=== PATIENT | female | born 1945 | race Caucasian/White ===

== ENCOUNTER 2018-01-30 08:33 | Inpatient (IN) ==
--- NOTE | 2018-01-30 08:46 | History & Physical Report ---
Date of Encounter: 01/30/18 Time of Encounter: 08:46 24 Hour HP Update - Instructions Instructions: If the History and Physical is less than 30 days old and was completed prior to A.M. admission and or procedure and has NOT been updated on calendar day of procedure please complete this update prior to performing procedure. - Update Patient reports changes in Medical Condition: No Changes in examination, assessment, or condition: No Changes in Medication: No Preop tests/diagnostics Reviewed: Yes Surgery Remains Indicated: Yes Consent for Planned Operative Procedure(s) Verified: Yes - Pre-Operative Checklist Preoperative Checklist Indicated: No Prophylactic Antibiotic Ordered: Yes Is VTE Prophylaxis Indicated?: Yes
--- NOTE | 2018-01-30 09:01 | Discharge Summary ---
Date of Encounter: 02/02/18 Time of Encounter: 12:30 - Discharge Diagnosis (1) Arthritis of both knees Priority: Primary Status: Chronic (2) Status post total bilateral knee replacement Priority: Primary Status: Acute (3) History of gastric bypass Priority: Secondary Status: Chronic (4) GERD (gastroesophageal reflux disease) Priority: Secondary Status: Chronic Qualifiers: Esophagitis presence: esophagitis presence not specified Qualified Code(s): K21.9 - Gastro-esophageal reflux disease without esophagitis (5) Anxiety Priority: Secondary Status: Chronic (6) Depression Priority: Secondary Status: Chronic Qualifiers: Depression Type: unspecified Qualified Code(s): F32.9 - Major depressive disorder, single episode, unspecified (7) Hypertension Priority: Secondary Status: Chronic Qualifiers: Hypertension type: unspecified Qualified Code(s): I10 - Essential (primary) hypertension (8) Postoperative anemia Priority: Secondary Status: Resolved Comments: Patient received 1 unit PRBCs following type and cross on 02/01/18 with satisfactory rise in hemoglobin and hematocrit. - Hospital Course Hospital course: Ms. Sarmiento is a 72 year old female POD#3 Date of procedure: 01/30/18 Pre-op diagnosis: Bilateral knee arthritis Post-op diagnosis: same Procedure: Bilateral robotic-assisted Total knee replacement PCR - Patient seen at bedside, sitting in chair. Patient's daughter and son at bedside. A&Ox3 Dressings and incision c/d/i Zipline and brandyn intact No calf tenderness, erythema, or warmth. Neurovascularly intact b/l LE. Labwork and medications reviewed. Pain control: Adequate - struggling with lightheadedness with PT participation and activity. Need to monitor opioid use and hypotension. Patient drinking water. 1/2 liter bolus given 01/31/18 with improvement in lightheadedness. Patient found to have low H/H 02/01/18 with symptoms of fatigue and return of lightheadedness. Patient received type/screen and given 1 unit of PRBCs 02/01/18 with improvement in H/H and symptoms. Participating in PT. All questions and concerns addressed. Educated on use of incentive spirometer, ambulation, and hydration. Patient educated on post-operative restrictions and care. D/c today to rehab. - Time Spent with Patient Total time spent providing and/or coordinating discharge services: - Discharge Medications Home Medications: Aspirin Enteric Coated [Aspirin EC] 325 mg PO BID 10 Days #20 tablet. 01/30/18 [Rx] Docusate Sodium [Colace] 100 mg PO BID 5 Days #10 capsule 01/30/18 [Rx] OxyCODONE Immed Rel [Roxicodone 5 MG] 5 mg PO Q6HR PRN 7 Days #28 tablet 01/30/18 [Rx] Ca/D3/Mag#11/Zinc/Blade Aligner/Ollie/Bor [Caltrate 600+D Plus Tablet] 1 each PO DAILY 01/31/18 [History] Citalopram Hydrobromide [Celexa] 40 mg PO DAILY 01/31/18 [History] DiphenhydraMINE [Benadryl] 1 appl TP TID PRN tube 01/31/18 [Rx] DiphenhydraMINE [Benadryl] 25 mg PO Q6HR PRN capsule 01/31/18 [Rx] Multivitamin [One Daily Essential] 1 each PO DAILY 01/31/18 [History] Pantoprazole Sodium [Protonix] 40 mg PO DAILY 01/31/18 [History] Temazepam [Restoril] 15 mg PO HS PRN capsule 01/31/18 [Rx] Allergies/Adverse Reactions: Allergy/AdvReac Type Severity Reaction Status Date / Time morphine AdvReac See Verified 01/31/18 17:31 Comments Sulfa (Sulfonamide AdvReac See Verified 01/31/18 17:31 Antibiotics) Comments Date of admission: 01/30/18 Primary care physician: Delia Do Discharging clinician: Braydon Waddell - VTE Documentation of Mechanical Device: Venous foot pump, device - Patient Status Disposition: Transfer Inpatient Rehab Fac Condition: Fair Functional capacity at discharge: uses cane/walker Overall status at discharge: patient is progressing back to baseline - Discharge Instructions Follow Up With: Delia Do MD [Primary Care Provider] - - Diet and Activity Activity: as per physical therapy Diet: advance to your usual diet
[2018-01-30] MEDS ORDERED: CeFAZolin Syr 2,000MG/20 ML 2,000 MG/20 ML SYRINGE IVPB ONE (09:07)
[2018-01-30] MEDS ORDERED: *HR* Propofol 200 MG/20 ML VIAL IVP ONE (09:12)
[2018-01-30] MEDS ORDERED: Ondansetron 4 MG/2 ML VIAL ONE (09:13)
[2018-01-30] MEDS ORDERED: Lidocaine -MPF 2% 2 ML VIAL ONE (09:13)
[2018-01-30] MEDS ORDERED: *HR* Midazolam HCl 2 MG/2 ML VIAL ONE ×2 (09:13→12:37)
[2018-01-30] MEDS ORDERED: *HR* FentaNYL (PF) 100 MCG/2 ML VIAL ONE (09:13)
[2018-01-30] MEDS ORDERED: Dexamethasone 4 MG/ML VIAL ONE (09:13)
--- NOTE | 2018-01-30 09:36 | Anesthesia Evaluation PreOp ---
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 01/30/18 [Rx] Docusate Sodium [Colace] 100 mg PO BID 5 Days #10 capsule 01/30/18 [Rx] OxyCODONE Immed Rel [Roxicodone 5 MG] 5 mg PO Q6HR PRN 7 Days #28 tablet 01/30/18 [Rx] Allergy/AdvReac Type Severity Reaction Status Date / Time morphine AdvReac See Verified 01/30/18 09:19 Comments Sulfa (Sulfonamide AdvReac See Verified 01/30/18 09:19 Antibiotics) Comments - Meds/Allergy Pre-op Review Medications Reviewed: Yes Allergies Reviewed: Yes Beta Blockers on Current Med List: No Anesthesia Results - Labs Laboratory Tests 01/23/18 01/23/18 13:50 13:50 Hgb 11.2 L Hct 35.1 L Plt Count 275 Sodium 140 Potassium 3.8 BUN 26 H Creatinine 0.66 - Imaging EKG: report reviewed (SR) Anesthesia Exam O2 Sat Height 1.65 m Height 1.65 m Height 1.65 m Weight 76.657 kg Weight 76.657 kg Weight 76.657 kg O2 Sat by Pulse Oximetry 100 Vital Signs Temp Pulse Resp BP Pulse Ox 98.3 F 63 18 150/86 100 01/30/18 08:54 01/30/18 08:54 01/30/18 08:54 01/30/18 08:54 01/30/18 08:54 Height: 5'5 Weight: 169 lbs NPO (# of Hours): MN Pain Scale: 0 - HEENT Pupil (Motor): Pupils equal, EOMI Mallampati: II Teeth: Prosthesis Denture Type: Upper: Complete Oral Opening: Greater than 3 - TEST RACK OPERATOR LOC: Oriented TEST RACK OPERATOR Motor: Normal RUE, Normal LUE, Normal RLE, Normal LLE, Normal Face TEST RACK OPERATOR Sensory: Normal: RUE, LUE, RLE, LLE, Face - Cardiac Rhythm: Regular Murmur: None JVD: No Carotid Bruit: No - Pulmonary Breath Sounds: bilateral Clear Respiratory Effort: Symmetrical Anesthesia Assess/Plan ASA Score: 2 Level of consciousness: Cooperative, Oriented Anesthetic Plan: Regional Nerve Block, MAC, Spinal Regional Nerve Block Plan: Adductor canal Autologous Blood: No Monitoring Plan: Standard Monitors Recovery Plan: PACU (Discussed SAB, Adductor Canal Block, possible GA, agrees to proceed)
[2018-01-30] MEDS ORDERED: Tranexamic Acid 1,000 MG/10 ML VIAL ONE ×2 (09:52→11:04)
[2018-01-30] MEDS: Ringers Solution, Lactated 1,000 ML IVC SCH ×3 (10:00→13:35)
[2018-01-30] MEDS ORDERED: ROPIVACAINE HCL/PF 0.5% 30 ML VIAL ONE (10:02)
[2018-01-30] MEDS ORDERED: Bupivacaine-MPF 0.25% 10 ML VIAL ONE (10:02)
[2018-01-30] MEDS ORDERED: *HR* EPINEPHrine 1 MG/ML AMPUL ONE (10:03)
[2018-01-30] MEDS ORDERED: Lidocaine -MPF 1% 5 ML AMPUL ONE (10:20)
[2018-01-30] MEDS ORDERED: Ethanol\\Acetic Acid\\Na Ace\\Ben 1,000 ML IRRIG.SOLN IR ONE (10:34)
[2018-01-30] MEDS ORDERED: Propofol 500 MG/50 ML INFUS..BTL ONE (10:45)
[2018-01-30] MEDS ORDERED: Acetaminophen IV 1,000 MG/100 ML INFUS..BTL ONE (11:29)
--- NOTE | 2018-01-30 11:46 | Anesthesia Procedures ---
Date of Encounter: 01/30/18 Time of Encounter: 10:25 Procedures: Anesthesia - Epidural/Spinal Patient ID/Chart reviewed: Yes Patient examined: Yes Supplemental Oxygen Rate (L/min): 2 Sedation: Versed (mg): 2 Sedation: Fentanyl (mcg): 100 Site Prep: Aseptic Technique, Sterile prep and drape, Povidone-Iodine 1%, Other (and alcohol) Local Anesthetic: Lidocaine 1% Amount of Local Anesthetic used: 2.5 Interspace Used: L4-L5 Blood: No CSF: Yes Spinal Needle Gauge: 24 Spinal Dose: 2ml 0.5% bupivicaine and o.25 mg duramorph Procedure: spinal for bilateral total knees - Nerve Block Procedure Date: 01/30/18 Time: 10:31 Allergies/Adv Reactions: Allergy/AdvReac Type Severity Reaction Status Date / Time morphine AdvReac See Verified 01/30/18 09:19 Comments Sulfa (Sulfonamide AdvReac See Verified 01/30/18 09:19 Antibiotics) Comments Pre-op Diagnosis: bilateral knee arthritis Surgical Procedure: bilateral knee arthroplasty Checklist: Correct Patient Identifier, Correct procedure, History checked Correct side: Right Blood Thinner: No Monitor Applied: EKG, BP, Pulse Oximetry Supplemental Oxygen via Nasal Cannula (L/min): 2 Indication: Post Op Analgesia (addcutor canal blocks) Catheter placed: No Sterile Technique: Yes Ultrasound used: Yes Anatomy identified: Yes Visual spread of Local: Yes Blood on Needle Aspiration: No Smooth Injection of Local: Yes Pain with Injection of Local: No Prep: Chlorhexadine Needle: 22 x 50 mm Stimuplex Local: Ropivacaine (and decadron) Volume (cc): 30 Number of Attempts: 1 Complications: None/effective block
[2018-01-30] MEDS ORDERED: Ondansetron 4 MG/2 ML VIAL IVP PRN ×2 (12:42→14:36)
[2018-01-30] MEDS ORDERED: *HR* OxyCODONE Immed Rel 5 MG TABLET PO PRN (12:46)
--- NOTE | 2018-01-30 12:55 | Orthopedic Operative Note ---
Date of procedure: 01/30/18 Pre-op diagnosis: Bilateral knee arthritis Post-op diagnosis: same Procedure: Procedure: Bilateral robotic-assisted Total knee replacement Estimated blood loss: 400 cc Hardware: Metal and polyethylene replacement. Ehsan Femur: 4 Tibia: 4 TS insert: 13 Patella: 36 Exam Under anesthesia: Left knee to degree hyperextension 3 degree varus, right knee 1 degree hyperextension 6 degree varus as calculated by the robot full flexion and no instability Procedural Notes: Grade 4 arthritic changes all 3 compartments both knees Operative procedure: The patient was brought to the operating room and placed on the operating room table. After general anesthesia was administered the operative knee was examined. Findings were noted in the exam under anesthesia. The operative extremity was prepped and draped in sterile surgical fashion. The patient received IV antibiotics prior to skin incision. Surgery will be dictated for both knees any differences will be highlighted. Surgery began with the left knee followed by the right knee. A standard midline incision was made centered over the patella. The incision was made through the skin and subcutaneous tissue. A medial parapatellar tendon approach was performed. Care was taken to preserve tissue along the medial aspect of the patella. And to protect the patella tendon. The deep MCL was released off the medial tibia. The infra patella fat pad was excised. The patella was everted and cut was made at the level of the insertion of the quadriceps and patella tendon. The patella was sized the guide was seated and the lug holes are drilled. Knee was brought into flexion. Patient noted to have grade 4 arthritic changes all 3 compartments in both knees. Steinmann pins were placed in the tibia and the femur for the tibial and femoral arrays respectively. Checkpoints were also placed in the tibia and the femur for calculation purposes. The knee including the femur and the tibial registered. Osteophytes, ACL and PCL were excised at this point. Extension and flexion were assessed with a valgus stress components were adjusted on the computer to balance the knee. Femoral cuts were made first with robotic assistance, these included the anterior cut posterior cuts chamfer cuts. Tibial cut was then performed with robotic assistance as well. Bone fragments were removed, as well as the medial and lateral meniscus. The size 4 femoral guide was seated box cut was made lug holes are drilled. The size 4 tibial tray was seated and prepared with the fin cutter. Trial reduction with the 3 TS Cori revealed 0 degrees of extension 1 degrees varus left knee, 0 degrees extension 5 degrees varus right knee full flexion in both knees. No varus valgus instability. Trial reduction revealed excellent patella tracking. All trial components were removed all bony surfaces were irrigated. The Tibia was seated followed by the femur, The selected Cori size was seated and secured patella. Patient had similar findings for motion and stability. The knee was closed by the PA. The knee was then irrigated out with 2 L of pulse irrigation. The extensor mechanism was closed with #2 FiberWire suture and #2 PDS suture. The subcutaneous tissue was then irrigated and closed deep with #1 PDS suture superficially with 0 PDS suture and skin was closed with zip tie The patient was then placed in a sterile dressing and a postoperative brace extubated and transferred to recovery room in stable condition. Anesthesia: spinal Surgeon: Braydon Waddell Was there an title assistant present: Yes Supervisor [employer]: Caterina Aguirre Estimated blood loss (cc): 400 Condition: stable Disposition: PACU
[2018-01-30] MEDS ORDERED: EPHEDrine 50 MG/ML VIAL ONE (13:28)
--- NOTE | 2018-01-30 13:53 | Anesthesia Evaluation Post Op ---
Date of Encounter: 01/30/18 Time of Encounter: 13:52 - Vital Signs Vital Signs: Vital Signs/O2 Sat/Glucose, Most Recent Temp Pulse Resp BP Pulse Ox 97.5 F L 68 18 123/67 95 01/30/18 13:25 01/30/18 13:45 01/30/18 13:45 01/30/18 13:45 01/30/18 13:45 - Lungs Lungs: Clear Ascult./Percussion - Airway Airway: Non-obstructed - Cardiovascular Regular Rate - Mental Status Mental Status: Alert & Oriented, Answers Appropriately - Pain Pain Scale: 0 - Nausea Vomiting Nausea Vomiting: Not Present - Hydration Hydration: NPO - Discharge PostOp Status: Transfer Patient to floor
[2018-01-30 14:30] LABS: Hemoglobin 10.2 g/dL (11.5-15.4)
[2018-01-30] MEDS ORDERED: Sennosides 8.6 MG TABLET PO PRN (14:36)
[2018-01-30] MEDS ORDERED: Ringers Solution, Lactated 1,000 ML IVC SCH (14:36)
[2018-01-30] MEDS ORDERED: MOM Conc 10 ML UD.LIQ PO PRN (14:36)
[2018-01-30] MEDS ORDERED: Naloxone 0.4 MG/ML INJ IVP PRN (14:36)
[2018-01-30] MEDS ORDERED: Temazepam 15 MG CAPSULE PO PRN (14:36)
[2018-01-30] MEDS ORDERED: DiphenhydraMINE CREAM 28.4 GM TUBE TP PRN (16:09)
--- NOTE | 2018-01-30 16:25 | Event Note ---
Date of Encounter: 01/30/18 Time of Encounter: 16:23 Patient doing well following surgery having itching to b/l UE Patient not able to feel b/l lower extremities yet Patient able to move toes and ankles however not able to move rest of b/l LE as of yet. patient currently opib - would like to consider inpatient rehab - not able to wo rk with therapy yet secondary to block still in effect at this time.
--- NOTE | 2018-01-30 16:44 | Orthopedics Progress Note ---
Date of Encounter: 01/30/18 Time of Encounter: 16:43 Subjective Interval history: Patient status post bilateral total knee replacement, patient evaluated by physical therapy and felt to be unsafe to go home will require ECF for recovery. Will be converted to inpatient status. Objective Vital signs: Vital Signs Temp Pulse Resp BP Pulse Ox 01/30/18 14:40 66 14 113/72 97 01/30/18 14:05 97.7 F 68 16 121/69 95 01/30/18 13:55 97.7 F 71 16 121/71 96 01/30/18 13:45 68 18 123/67 95 01/30/18 13:35 63 18 127/69 95 01/30/18 13:25 97.5 F L 49 18 74/48 96 01/30/18 11:02 65 145/83 98 01/30/18 10:50 61 148/85 98 01/30/18 10:40 64 144/92 98 01/30/18 10:33 61 142/85 98 01/30/18 10:28 63 141/80 98 01/30/18 09:59 60 158/88 98 01/30/18 08:54 98.3 F 63 18 150/86 100 Intake and Output 01/30/18 01/30/18 01/30/18 07:59 15:59 23:59 Intake Total 2000 / 2000 Output Total 400 / 400 Balance 1600 / 1600 Intake: IV Fluids 2000 / 1999 Lactated Ringers 1,000 ML @ 25 2000 / 2000 mls/hr IVC .Q24H JULIANNE Rx#: [id number] Output: Urine 0 / 0 Estimated Blood Loss 400 / 400 Other: Weight 76.657 kg Patient Weight 01/30/18 23:59 Weight 76.657 kg - Labs CBC & BMP: 01/30/18 13:42 Labs: Abnormal lab results Hgb 10.2 g/dL (11.5-15.4) L 01/30/18 13:42 Hct 32.0 % (35.3-44.9) L 01/30/18 13:42 Consult Discharge Plan - Plan Referrals: Delia Do MD [Primary Care Provider] - Prescriptions: Aspirin Enteric Coated [Aspirin EC] 325 mg PO BID 10 Days #20 tablet. Docusate Sodium [Colace] 100 mg PO BID 5 Days #10 capsule OxyCODONE Immed Rel [Roxicodone 5 MG] 5 mg PO Q6HR PRN 7 Days #28 tablet PRN Reason: Severe Pain
[2018-01-30] MEDS: *HR* Enoxaparin 30 MG/0.3 ML SYRINGE SQ SCH (17:42)
[2018-01-30] MEDS: *HR* OxyCODONE Immed Rel 5 MG TABLET PO PRN ×2 (17:43→23:49)
[2018-01-30] MEDS ORDERED: *HR* Enoxaparin 30 MG/0.3 ML SYRINGE SQ SCH (18:00)
[2018-01-31] MEDS: *HR* OxyCODONE Immed Rel 5 MG TABLET PO PRN ×5 (04:14→23:44)
[2018-01-31] MEDS: *HR* Enoxaparin 30 MG/0.3 ML SYRINGE SQ SCH ×2 (05:04→17:21)
[2018-01-31] MEDS: *HR* OxyCODONE/APAP 5/325 TABLET PO PRN ×3 (05:57→17:21)
[2018-01-31 06:09] LABS: BUN/Creatinine Ratio 32 (6-26); Blood Urea Nitrogen 18 mg/dL (8-23); Calcium 8.1 mg/dL (8.6-10.3); Carbon Dioxide 25 mEq/L (23-29); Chloride 104 mEq/L (98-107); Glucose 128 mg/dL (70-105); Hematocrit 28.5 % (35.3-44.9); Hemoglobin 9.2 g/dL (11.5-15.4); Osmolality,Calculated 286 (280-300); Potassium 4.3 mEq/L (3.5-5.1); Sodium 136 mEq/L (136-145); eGFR For Non-African Americans > 60 (> 60)
--- NOTE | 2018-01-31 06:38 | Orthopedics Progress Note ---
Date of Encounter: 01/31/18 Time of Encounter: 06:37 - Assessment and Plan (1) Acute blood loss anemia Current Visit: Yes Status: Acute Subjective Interval history: Patient was seen this morning doing well without complaints. Afebrile vital signs stable. Operative extremity: Neurovascularly intact Dressing clean dry and intact Calves nontender Assessment and plan: Continue with postoperative care Hemoglobin 9.2 Objective Vital signs: Vital Signs Temp Pulse Resp BP Pulse Ox 01/30/18 23:17 98.1 F 63 16 123/75 97 01/30/18 21:05 95 01/30/18 18:37 98.1 F 76 16 100/63 95 01/30/18 14:40 66 14 113/72 97 01/30/18 14:05 97.7 F 68 16 121/69 95 01/30/18 13:55 97.7 F 71 16 121/71 96 01/30/18 13:45 68 18 123/67 95 01/30/18 13:35 63 18 127/69 95 01/30/18 13:25 97.5 F L 49 18 74/48 96 01/30/18 11:02 65 145/83 98 01/30/18 10:50 61 148/85 98 01/30/18 10:40 64 144/92 98 01/30/18 10:33 61 142/85 98 01/30/18 10:28 63 141/80 98 01/30/18 09:59 60 158/88 98 01/30/18 08:54 98.3 F 63 18 150/86 100 Intake and Output 01/30/18 01/30/18 01/31/18 15:59 23:59 07:59 Intake Total 1999 / 1999 400 / 400 Output Total 400 / 400 Balance 1600 / 1600 400 / 400 Intake: IV Fluids 1999 / 1999 200 / 200 Lactated Ringers 1,000 ML @ 25 2000 / 2000 mls/hr IVC .Q24H JULIANNE Rx#: [id number] Ancef 2,000 MG In 0.9 % Sodium 200 / 200 Chloride 100 ML @ 200 mls/hr IVPB Q8HR JULIANNE Rx#:[id number] Oral 200 / 200 Output: Urine 0 / 0 Estimated Blood Loss 400 / 400 Other: # Voids 1 1 Weight 76.657 kg 76.6 kg Patient Weight 01/31/18 23:59 Weight 76.6 kg - Labs CBC & BMP: 01/31/18 04:58 01/31/18 04:58 Labs: Abnormal lab results Hgb 9.2 g/dL (11.5-15.4) L 01/31/18 04:58 Hct 28.5 % (35.3-44.9) L 01/31/18 04:58 Creatinine 0.57 mg/dL (0.60-1.20) L 01/31/18 04:58 BUN/Creatinine Ratio 32 (6-26) H 01/31/18 04:58 Glucose 128 mg/dL (70-105) H 01/31/18 04:58 Calcium 8.1 mg/dL (8.6-10.3) L 01/31/18 04:58 - VTE Documentation of Mechanical Device: Venous foot pump, device Consult Discharge Plan - Plan Referrals: Delia Do MD [Primary Care Provider] -
--- NOTE | 2018-01-31 08:55 | Event Note ---
Date of Encounter: 01/31/18 Time of Encounter: 08:55 PCR- POD#1 s/p b/l TKR 01/30/18 Dr. Waddell PCR - Patient seen at bedside, sitting in chair. Patient's daughter at bedside. A&Ox3 Dressing and incision c/d/i Zipline and brandyn intact No calf tenderness, erythema, or warmth. Neurovascularly intact b/l LE. Labwork and medications reviewed. Home meds not ordered- orders placed - awaiting pharmacy verification. Pain control: Adequate - struggling with lightheadedness with PT participation and activity. Need to monitor opioid use and hypotension. Patient drinking water - will consider bolus if needed. Participating in PT. All questions and concerns addressed. Educated on use of incentive spirometer, ambulation, and hydration. Patient educated on post-operative restrictions and care. Addressed: see above. D/C plan: Inpt Rehab when authorized Vital Signs Temp Pulse Resp BP Pulse Ox 01/31/18 11:49 97.9 F 75 17 128/78 98 01/31/18 10:01 98.3 F 74 16 85/56 94 01/31/18 06:39 98.0 F 77 14 93/61 96 01/30/18 23:17 98.1 F 63 16 123/75 97 01/30/18 21:05 95 01/30/18 18:37 98.1 F 76 16 100/63 95 01/30/18 14:40 66 14 113/72 97 01/30/18 14:05 97.7 F 68 16 121/69 95 01/30/18 13:55 97.7 F 71 16 121/71 96 01/30/18 13:45 68 18 123/67 95 01/30/18 13:35 63 18 127/69 95 01/30/18 13:25 97.5 F L 49 18 74/48 96 Intake and Output 01/30/18 01/31/18 01/31/18 23:59 07:59 15:59 Intake Total 400 / 400 200 / 200 Balance 400 / 400 200 / 200 Intake: IV Fluids 200 / 200 Ancef 2,000 MG In 0.9 % Sodium 200 / 200 Chloride 100 ML @ 200 mls/hr IVPB Q8HR JULIANNE Rx#:[id number] Oral 200 / 200 200 / 200 Other: Meal Breakfast Percent of Meal Consumed 50% # Voids 1 1 Weight 76.6 kg Patient Weight 01/31/18 23:59 Weight 76.6 kg Short CBC 01/31/18 01/30/18 Range/Units 04:58 13:42 Hgb 9.2 L 10.2 L (11.5-15.4) g/dL Hct 28.5 L 32.0 L (35.3-44.9) % BMP 01/31/18 Range/Units 04:58 Sodium 136 (136-145) mEq/L Potassium 4.3 (3.5-5.1) mEq/L Chloride 104 (98-107) mEq/L Carbon Dioxide 25 (23-29) mEq/L BUN 18 (8-23) mg/dL Creatinine 0.57 L (0.60-1.20) mg/dL Glucose 128 H (70-105) mg/dL Calcium 8.1 L (8.6-10.3) mg/dL
[2018-01-31] MEDS ORDERED: 0.9 % Sodium Chloride 500 ML IVC ONE (10:21)
--- NOTE | 2018-01-31 12:58 | Physician Discharge Referral ---
ExtendedCare Referral Info Transfer To: [facility] Provider in Charge: Dr. Braydon Waddell - Diagnosis (1) Arthritis of both knees Priority: Primary Status: Chronic (2) Status post total bilateral knee replacement Priority: Primary Status: Acute (3) History of gastric bypass Priority: Secondary Status: Chronic (4) GERD (gastroesophageal reflux disease) Priority: Secondary Status: Chronic (5) Anxiety Priority: Secondary Status: Chronic (6) Depression Priority: Secondary Status: Chronic (7) Hypertension Priority: Secondary Status: Chronic Expected Duration of Placement: less than 30 days Prognosis: Good Aware of Diagnosis: Patient Aware of Prognosis: Patient - Transfer Medications Home Medications: Aspirin Enteric Coated [Aspirin EC] 325 mg PO BID 10 Days #20 tablet.dr 01/30/18 [Rx] Docusate Sodium [Colace] 100 mg PO BID 5 Days #10 capsule 01/30/18 [Rx] OxyCODONE Immed Rel [Roxicodone 5 MG] 5 mg PO Q6HR PRN 7 Days #28 tablet 01/30/18 [Rx] Citalopram Hydrobromide [Celexa] 40 mg PO DAILY 01/31/18 [History] DiphenhydraMINE [Benadryl] 1 appl TP TID PRN tube 01/31/18 [Rx] DiphenhydraMINE [Benadryl] 25 mg PO Q6HR PRN capsule 01/31/18 [Rx] Pantoprazole Sodium [Protonix] 40 mg PO DAILY 01/31/18 [History] Temazepam [Restoril] 15 mg PO HS PRN capsule 01/31/18 [Rx] Allergies/Adverse Reactions: Allergy/AdvReac Type Severity Reaction Status Date / Time morphine AdvReac See Verified 01/30/18 09:19 Comments Sulfa (Sulfonamide AdvReac See Verified 01/30/18 09:19 Antibiotics) Comments - Respiratory Orders Smoking Cessation: Smoking cessation has been advised. For more information, call the [place] Tobacco Quit Line at 0-099-RMSH-NOW. - Ancillary Orders May use pressure relief devices daily prn, May go on KALPESH w/family/respon republican w/meds at nurse discretion PRN, May consult with Dentist, Operations Trainer, [place] PRN - Mobility Orders Chair, Ambulate - Rehabiliation Orders Rehab Potential: Good Rehab Orders: Evaluation for Physical Therapy, Evaluation for Occupational Therapy Other: Total Knee replacement Precautions x 6 weeks Apply cold therapy wrap 3-6x/day for 20 minutes at a time. Encourage ambulation throughout the day and incentive spirometer 10x/hour. Elevate affected extremity above heart as tolerated. Brace: Wear knee immobilizer at night x 2 weeks. - Treatments Skin tear care topically daily PRN per policy List/Other: Opsite placed. Keep dressing intact until first follow up appointment. If greater than 50% saturated, notify office, remove dressing and place appropriate dressing back in place. Leave Zipline intact. Opsite dressing is water resistant, not water-proof. OK to shower, but do not get dressing wet. - Diet Orders Regular CERTIFICATION: I certify that the transfer of the above named patient to an Extended Care Facility is necessary for the continuing treatment of the diagnosis listed. The above information is true and accurate reflection of patient's current condition. Confidential - Redisclosure prohibited without a patient's written consent.
[2018-02-01] MEDS: *HR* OxyCODONE/APAP 5/325 TABLET PO PRN ×3 (02:48→17:21)
[2018-02-01] MEDS: *HR* OxyCODONE Immed Rel 5 MG TABLET PO PRN ×2 (05:21→12:55)
[2018-02-01] MEDS: *HR* Enoxaparin 30 MG/0.3 ML SYRINGE SQ SCH ×2 (05:22→17:21)
--- NOTE | 2018-02-01 06:37 | Orthopedics Progress Note ---
Date of Encounter: 02/01/18 Time of Encounter: 06:36 - Assessment and Plan (1) Acute blood loss anemia Current Visit: Yes Status: Acute Subjective Interval history: Patient was seen this morning doing well without complaints. Afebrile vital signs stable. Operative extremity: Neurovascularly intact Dressing clean dry and intact Calves nontender Assessment and plan: Continue with postoperative care Plan for discharge tomorrow Objective Vital signs: Vital Signs Temp Pulse Resp BP Pulse Ox 02/01/18 04:22 98.6 F 80 17 140/70 97 01/31/18 22:56 98.7 F 82 18 143/75 99 01/31/18 19:50 96 01/31/18 18:44 98.9 F 88 17 101/67 96 01/31/18 17:05 98.3 F 89 14 123/67 98 01/31/18 11:49 97.9 F 75 17 128/78 98 01/31/18 10:01 98.3 F 74 16 85/56 94 01/31/18 06:39 98.0 F 77 14 93/61 96 Intake and Output 01/31/18 01/31/18 02/01/18 15:59 23:59 07:59 Intake Total 440 / 440 740 / 740 300 / 300 Output Total 900 / 900 400 / 400 Balance 440 / 440 -160 / -160 -100 / -100 Intake: Oral 440 / 440 740 / 740 300 / 300 Output: Urine 900 / 900 400 / 400 Other: Meal Lunch Dinner Percent of Meal Consumed 60% 55% Weight 76.5 kg Patient Weight 02/01/18 23:59 Weight 76.5 kg - Labs CBC & BMP: 01/31/18 04:58 01/31/18 04:58 Labs: Abnormal lab results Hgb 9.2 g/dL (11.5-15.4) L 01/31/18 04:58 Hct 28.5 % (35.3-44.9) L 01/31/18 04:58 Creatinine 0.57 mg/dL (0.60-1.20) L 01/31/18 04:58 BUN/Creatinine Ratio 32 (6-26) H 01/31/18 04:58 Glucose 128 mg/dL (70-105) H 01/31/18 04:58 Calcium 8.1 mg/dL (8.6-10.3) L 01/31/18 04:58 - VTE Documentation of Mechanical Device: Venous foot pump, device Consult Discharge Plan - Plan Referrals: Delia Do MD [Primary Care Provider] -
[2018-02-01 07:13] LABS: Hematocrit 23.8 % (35.3-44.9)
[2018-02-01 07:29] LABS: BUN/Creatinine Ratio 28 (6-26); Blood Urea Nitrogen 18 mg/dL (8-23); Calcium 8.3 mg/dL (8.6-10.3); Carbon Dioxide 30 mEq/L (23-29); Chloride 103 mEq/L (98-107); Glucose 132 mg/dL (70-105); Osmolality,Calculated 286 (280-300); Potassium 3.9 mEq/L (3.5-5.1); Sodium 136 mEq/L (136-145); eGFR For Non-African Americans > 60 (> 60)
--- NOTE | 2018-02-01 13:27 | Event Note ---
Date of Encounter: 02/01/18 Time of Encounter: 12:55 PCR- POD#2 s/p b/l TKR 01/30/18 Dr. Waddell PCR - Patient seen at bedside, sitting in chair. Patient's daughter and son at bedside. A&Ox3 Dressing and incision c/d/i Zipline and brandyn intact No calf tenderness, erythema, or warmth. Neurovascularly intact b/l LE. Labwork and medications reviewed. Pain control: Adequate - struggling with lightheadedness with PT participation and activity. Need to monitor opioid use and hypotension. Patient drinking water. 1/2 liter bolus given 01/31/18 with improvement in lightheadedness. Patient found to have low H/H this morning with symptoms of fatigue and return of lightheadedness. Will type/screen and give 1 unit of PRBCs. Participating in PT. All questions and concerns addressed. Educated on use of incentive spirometer, ambulation, and hydration. Patient educated on post-operative restrictions and care. Addressed: 1 unit PRBCs D/C plan: Inpt Rehab when authorized Vital Signs Temp Pulse Resp BP Pulse Ox 02/01/18 18:55 97.9 F 77 17 146/86 97 02/01/18 17:25 97.9 F 76 16 148/91 96 02/01/18 14:37 98.0 F 84 14 138/80 98 02/01/18 14:22 98.5 F 86 14 136/76 02/01/18 10:31 98.8 F 78 15 125/72 98 02/01/18 07:41 98.5 F 85 14 96/60 99 02/01/18 04:22 98.6 F 80 17 140/70 97 01/31/18 22:56 98.7 F 82 18 143/75 99 Intake and Output 02/01/18 02/01/18 02/01/18 07:59 15:59 23:59 Intake Total 300 / 300 0 / 0 350 / 350 Output Total 400 / 400 Balance -100 / -100 0 / 0 350 / 350 Intake: Oral 300 / 300 Blood Product 0 / 0 350 / 350 Rbcs Leuko Poor As-1 Unit 0 / 0 350 / 350 [id number] Output: Urine 400 / 400 Other: Stool Size Small Stool Consistency formed Stool Color Brown # Voids 1 1 Weight 76.5 kg Patient Weight 02/01/18 23:59 Weight 76.5 kg Short CBC 02/01/18 Range/Units 06:38 Hgb 8.0 L (11.5-15.4) g/dL Hct 23.8 L (35.3-44.9) % BMP 02/01/18 Range/Units 06:38 Sodium 136 (136-145) mEq/L Potassium 3.9 (3.5-5.1) mEq/L Chloride 103 (98-107) mEq/L Carbon Dioxide 30 H (23-29) mEq/L BUN 18 (8-23) mg/dL Creatinine 0.64 (0.60-1.20) mg/dL Glucose 132 H (70-105) mg/dL Calcium 8.3 L (8.6-10.3) mg/dL
[2018-02-01] MEDS ORDERED: 0.9 % Sodium Chloride 250 ML ONE (14:03)
[2018-02-01] MEDS: traMADol 50 MG TABLET PO PRN (19:02)
[2018-02-02] MEDS: *HR* OxyCODONE/APAP 5/325 TABLET PO PRN ×3 (02:02→13:59)
[2018-02-02] MEDS: *HR* Enoxaparin 30 MG/0.3 ML SYRINGE SQ SCH (05:19)
[2018-02-02 10:22] VITALS: BP 122/75
[2018-02-02] MEDS: traMADol 50 MG TABLET PO PRN (10:31)
[2018-02-02 11:55] LABS: Hematocrit 28.8 % (35.3-44.9); Hemoglobin 9.3 g/dL (11.5-15.4)
--- NOTE | 2018-02-02 12:05 | Event Note ---
Date of Encounter: 02/02/18 Time of Encounter: 12:05
[2018-02-02 12:14] LABS: BUN/Creatinine Ratio 28 (6-26); Blood Urea Nitrogen 17 mg/dL (8-23); Calcium 8.9 mg/dL (8.6-10.3); Carbon Dioxide 29 mEq/L (23-29); Chloride 102 mEq/L (98-107); Glucose 99 mg/dL (70-105); Osmolality,Calculated 288 (280-300); Potassium 3.4 mEq/L (3.5-5.1); Sodium 138 mEq/L (136-145); eGFR For Non-African Americans > 60 (> 60)
== END 2018-02-02 15:52 | DRG 462 ==
LOC: SAMDAY 08:33 → 3NENU 14:14
PROVIDERS: ADMIT Orthopaedic Surgery; ATTEND Orthopaedic Surgery